=== PATIENT | female | born 1965 | race Caucasian/White ===

== ENCOUNTER 2024-04-29 10:28 | Emergency (ER) | payer OTHER, SELFPAY ==
[2024-04-29 10:37] VITALS: BP 142/86
[2024-04-29 10:51] VITALS: BP 138/82
[2024-04-29 11:00] VITALS: BP 127/84
--- NOTE | 2024-04-29 11:03 | ED.GENMED ---
History of Present Illness
General
Chief Complaint: Blood Pressure Problem
Source: patient
Exam Limitations: none
Time Seen by Provider: 04/29/24 10:51
Nursing documentation reviewed up to this point in time: agreed with
History of Present Illness
History of Present Illness:
58-year-old female presenting to the emergency department today with concerns of elevated blood pressure over the past week or so fluctuating between 140s and 160s systolic. Also noticed that she felt some mild breath today earlier today. Has does
have a burning discomfort to the chest and upper abdomen but claims she does have a history of reflux. Denies any ongoing discomfort at this point. Denies significant shortness of breath currently no nausea vomiting or heavy sweating. She
currently is taking hydrochlorothiazide 25 mg daily
Review of Systems
Review of Systems
Allergies reviewed?: Yes
All Other Systems: ROS reviewed and negative except as documented in HPI and ROS
Phy Exam
Physical Exam
Physical Exam:
GENERAL: Alert , in no apparent distress
EYE: pupils equal and reactive
NECK: Supple, no significant adenopathy.
ENT: o/p clr, mmm.
CARDIAC: Regular rate and rhythm .
LUNGS: Clear breath sounds bilaterally, no acute respiratory distress, no wheezes/rales/rhonchi
ABDOMEN: Soft, without focal tenderness, no r/g, no cvat
NEUROLOGICAL: Alert and oriented, no focal neuro deficits
SKIN: Warm and dry, skin intact.
MUSCULOSKELETAL: No edema, well perfused.
PSYCH: Normal and appropriate interaction.
Course
Orders/Labs/Results
Orders:
Orders
04/29/24 10:42
Electrocardiogram (*1) Urgent
Reason for Study: Hypertension, Benign
EKG- Treatment ONCE
04/29/24 11:03
Mag Hydrox/Al Hydrox/Simeth [Maalox] 30 ml Phenobarb/Hyoscy/Atropine/Scop [] 10 ml PO NOW
04/29/24 11:04
CR Chest - 2 Views Urgent
Comment:
Reason For Exam: cp
04/29/24 11:15
Mag Hydrox/Al Hydrox/Simeth [Maalox] 30 ml .ROUTE .STK-MED ONE
Phenobarb/Hyoscy/Atropine/Scop [] 10 ml .ROUTE .STK-MED ONE
04/29/24 11:29
Complete Blood Count/With Diff Urgent
Comprehensive Metabolic Panel Urgent
Magnesium Urgent
Troponin I Urgent
Abnormal Lab Results
04/29/24
11:29
Lymphocytes % 19.7 L %
(20.5-51.1)
Glucose 160 H mg/dl
(70-99)
AST 40 H U/L
(14-36)
04/29/24 11:29
04/29/24 11:29
Vital Signs
Initial and Last Documented VS:
Initial Vital Signs
Temp Pulse Resp BP Pulse Ox
98.3 F 73 16 142/86 98
04/29/24 10:37 04/29/24 10:37 04/29/24 10:37 04/29/24 10:37 04/29/24 10:37
Last Documented Vital Signs
Temp Pulse Resp BP Pulse Ox
98.3 F 56 16 146/83 97
04/29/24 10:37 04/29/24 12:47 04/29/24 12:30 04/29/24 12:11 04/29/24 12:47
MDM/Problems Addressed
MDM/Problems Addressed:
58-year-old female presenting to the emergency department with concerns of elevated blood pressure over the past week. She also claims she has had some intermittent burning discomfort of the chest and upper abdomen does not history of GERD.
Noticed that she had a moment where she felt short of breath earlier today denies any currently. On arrival blood pressure mildly elevated in the 140s over 80s otherwise vital signs are normal. Labs unremarkable. EKG normal. Chest x-ray without
emergent findings. Patient well-appearing throughout ER stay blood pressure in the 140s she was advised to increase her hydrochlorothiazide dose and otherwise follow-up closely as an outpatient. Return precautions given.
*Critical Care Note
Total Time (30-74mins, 75-104mins- exclusive of procedures): Not Applicable
ED Attending Note
-
Portions of this chart may have been created with voice recognition software.� Occasional wrong word or��sound alike� substitutions may have occurred due to the inherent limitations of voice recognition software.
Discharge Plan
Departure
Patient Disposition: Home (Routine Discharge)
Date of Disposition: 04/29/24
Time of Disposition: 12:58
Patient with high blood pressure during this ER visit?: Yes
Condition: Good
Covid-19: Not Applicable
Discharge Problem:
High blood pressure
Instructions: High Blood Pressure (DC)
Prescriptions:
New
hydrochlorothiazide 50 mg tablet
50 mg PO DAILY 14 Days Qty: 14 0RF
Referrals:
NONE,* [Family Provider] -
Activity Restrictions/Additional Instructions:
You came to the emergency department today with concerns of elevated blood pressure. Here you had a reassuring assessment otherwise. Your blood pressure was slightly elevated while here. Please increase your dose of hydrochlorothiazide to 50 mg
daily and follow-up closely with your primary care doctor within 1 week for reassessment and continued medication med return for any worsening, new or concerning symptoms.
Interventions
Interventions:
*Risk Screen - Suicide Last Done: 04/29/24 10:37
*Neglect/Abuse Screening Last Done: 04/29/24 10:37
Discharge Date and Time
Print Language: ROMANSH
[2024-04-29] MEDS: MAALOX 30 PO (11:31)
[2024-04-29 11:42] LABS: % Basophils 0.7 % (0-2); % Eosinophils 2.3 % (0-6); % Immature Granulocytes 0.5 % (0-0.5); % Lymphocytes 19.7 % (20.5-51.1); % Monocytes 5.6 % (1.7-9.3); % Neutrophils 71.2 % (42.2-75.2); Absolute Basophils 0.1 10^3/uL (0-0.2); Absolute Eosinophils 0.2 10^3/uL (0-0.7); Absolute Lymphocytes 1.6 10^3/uL (1.2-3.4); Absolute Monocytes 0.5 10^3/uL (0.1-0.6); Absolute Neutrophils 5.9 10^3/uL (1.4-6.5); Hemoglobin 14.1 g/dL (12.0-16.0); Mean Corp Hgb Conc. 34.4 g/dL (33.0-37.0); Mean Corpuscular Hgb 30.9 pg (27.0-31.0); Mean Corpuscular Volume 89.9 fL (81.0-99.0); Mean Platelet Volume 10.1 fL (7.4-10.4); Nucleated Red Blood Cells % 0 %; Platelet Count 275 10^3/uL (130-400); Red Blood Cell Count 4.56 10^6/uL (4.20-5.40); Red Cell Dist. Width 12.8 % (11.5-14.5); White Blood Cell Count 8.2 10^3/uL (4.8-10.8)
[2024-04-29 11:54] LABS: ALT (SGPT) 34 U/L (0-35); AST (SGOT) 40 U/L (14-36); Albumin 4.8 g/dl (3.5-5.0); Alkaline Phosphatase 74 U/L (38-126); Blood Urea Nitrogen 16 mg/dl (7-17); Carbon Dioxide 26 mmol/L (22-30); Chloride 103 mmol/L (98-107); Glucose 160 mg/dl (70-99); Potassium 3.7 mmol/L (3.5-5.1); Sodium 140 mmol/L (135-145); Total Bilirubin 0.7 mg/dl (0.2-1.3); Total Protein 7.8 g/dl (6.3-8.2); eGFR > 60.00
[2024-04-29 12:07] LABS: Troponin I < 0.012 ng/ml
[2024-04-29 12:11] VITALS: BP 146/83
[2024-04-29 13:11] VITALS: BP 152/85
== END 2024-04-29 13:30 | disposition home or self-care (01) ==
LOC: EMR 10:28
PROVIDERS: Physician Assistant; EMERGENCY PHYSICIAN Emergency Medicine
DX: I10 Essential (primary) hypertension (principal); R07.89 Other chest pain; K21.9 Gastro-esophageal reflux disease without esophagitis; Z79.899 Other long term (current) drug therapy
CPT/HCPCS: 99285; 71046; 80053; 83735; 84484; 85025; 93005